=== PATIENT | female | born 1995 | race African-American/Black ===

== ENCOUNTER 2017-11-03 14:26 | Emergency (ER) | payer OTHER ==
--- NOTE | 2017-11-03 14:57 | EDPHY ---
H & P Time Seen by Provider: 11/03/17 14:40 HPI/ROS: Chief complaint. , vaginal bleeding HPI. 21-year-old female 8 weeks with vaginal spotting over the past few weeks. Last night she had heavier vaginal bleeding that seems to be now better. Last night she had some low abdominal cramping and low back pain. No urinary symptoms. 1 para 0. No care. No fever, chest discomfort, trouble breathing. ROS Constitutional. no fever/chills, no weakness Eyes. no problems with vision ENT. no sore throat, no nasal drainage Cardiovascular. no chest pain Respiratory. no shortness of breath, no cough Abdominal. Low abdominal cramping and vaginal bleeding . no problems urinating MS. no calf pain/swelling, no neck/back pain, no joint pain Skin. no rash Lymph. no swollen glands Neuro. no headache, no dizziness, no difficulty walking or with speech Past Medical/Surgical History: Healthy Social History: Single, daily smoker, no alcohol Smoking Status: Current every day smoker Physical Exam: General Appearance: Alert well-developed female mild distress vitals are stable Eyes: Pupils equal and round no pallor or injection. ENT, Mouth: Mucous membranes are moist. Respiratory: There are no retractions, lungs are clear to auscultation. Cardiovascular: Regular rate and rhythm. Gastrointestinal: Abdomen is soft and nontender, no masses, bowel sounds normal. Neurological: Awake and alert, sensory and motor exams grossly normal. Skin: Warm and dry, no rashes. Musculoskeletal: Neck is supple nontender. Extremities symmetrical, full range of motion. Psychiatric: Patient is oriented X 3, there is no agitation. Constitutional: Initial Vital Signs Temperature (C) 36.7 C 11/03/17 14:30 Heart Rate 95 11/03/17 14:30 Respiratory Rate 16 11/03/17 14:30 Blood Pressure 109/84 H 11/03/17 14:30 O2 Sat (%) 97 11/03/17 14:30 O2 Delivery Mode Room Air Allergies/Adverse Reactions: No Known Allergies Allergy (Unverified 11/03/17 14:30) Home Medications: Medication Instructions Recorded 11/03/17 Medical Decision Making - Diagnostics Imaging Results: Imaging Impressions Pelvic/Renal Ultrasound 11/03/17 15:06 Impression: 1. Single viable intrauterine gestation with EGA by LMP of 6 weeks 4 days and by ultrasound of 8 weeks 2 days is detected above. 2. Estimated date of delivery is 06/25/2018 by LMP and 06/13/2018 by ultrasound. 3. Small subchorionic hemorrhage along the left anterior aspect of the gestational sac. 4. Consider follow up anatomy scan. Findings discussed with Evens Crocker M.D. at 16:10 hour, 11/03/2017. Pelvic ultrasound reviewed by me and discussed with Dr. Ortega shows an 8 week 2 day fetus. heart rate 186. It is a single intrauterine . There is a subchorionic hemorrhage present Procedures: IV normal saline ED Course/Re-evaluation: Re-evaluation 5:00 p.m.. Patient is stable. The patient and I discussed imaging lab results. We discussed treatment plan including criteria for return importance of follow-up and further evaluation. She expresses understanding and agreement Differential Diagnosis: I considered threatened miscarriage, subchorionic hemorrhage, UTI - Data Points Laboratory Results: Laboratory Results 11/03/17 15:15 11/03/17 15:15 11/03/17 11/03/17 11/03/17 15:58 15:15 15:15 WBC 8.94 10^3/uL 10^3/uL (3.80-9.50) RBC 4.22 10^6/uL 10^6/uL (4.18-5.33) Hgb 12.3 g/dL L g/dL (12.6-16.3) Hct 36.6 % L % (38.0-47.0) MCV 86.7 fL fL (81.5-99.8) MCH 29.1 pg pg (27.9-34.1) MCHC 33.6 g/dL g/dL (32.4-36.7) RDW 13.1 % % (11.5-15.2) Plt Count 288 10^3/uL 10^3/uL (150-400) MPV 9.3 fL fL (8.7-11.7) Neut % (Auto) 74.7 % H % (39.3-74.2) Lymph % (Auto) 17.1 % % (15.0-45.0) [place] % (Auto) 6.3 % % (4.5-13.0) Eos % (Auto) 1.6 % % (0.6-7.6) Baso % (Auto) 0.1 % L % (0.3-1.7) Nucleat RBC Rel Count 0.0 % % (0.0-0.2) Absolute Neuts (auto) 6.68 10^3/uL H 10^3/uL (1.70-6.50) Absolute Lymphs (auto) 1.53 10^3/uL 10^3/uL (1.00-3.00) Absolute Monos (auto) 0.56 10^3/uL 10^3/uL (0.30-0.80) Absolute Eos (auto) 0.14 10^3/uL 10^3/uL (0.03-0.40) Absolute Basos (auto) 0.01 10^3/uL L 10^3/uL (0.02-0.10) Absolute Nucleated RBC 0.00 10^3/uL 10^3/uL (0-0.01) Immature Gran % 0.2 % % (0.0-1.1) Immature Gran # 0.02 10^3/uL 10^3/uL (0.00-0.10) Sodium 136 mEq/L mEq/L (135-145) Potassium 3.6 mEq/L mEq/L (3.3-5.0) Chloride 106 mEq/L mEq/L (97-110) Carbon Dioxide 23 mEq/l mEq/l (22-31) Anion Gap 7 mEq/L L mEq/L (8-16) BUN 7 mg/dL mg/dL (7-23) Creatinine 0.6 mg/dL mg/dL (0.6-1.0) Estimated GFR > 60 Glucose 81 mg/dL mg/dL (70-100) Calcium 9.3 mg/dL mg/dL (8.5-10.4) Beta HCG, Quant 262319.00 mIU/mL H mIU/mL (0.00-4.83) Urine Color YELLOW Urine Appearance MODERATELY TURBID Urine pH 7.0 (5.0-7.5) Ur Specific [place] 1.013 (1.002-1.030) Urine Protein NEGATIVE (NEGATIVE) Urine Ketones NEGATIVE (NEGATIVE) Urine Blood NEGATIVE (NEGATIVE) Urine Nitrate NEGATIVE (NEGATIVE) Urine Bilirubin NEGATIVE (NEGATIVE) Urine Urobilinogen NEGATIVE EU EU (0.2-1.0) Ur Leukocyte Esterase NEGATIVE (NEGATIVE) Urine RBC 5-10 /hpf H /hpf (0-3) Urine WBC 0-1 /hpf /hpf (0-3) Ur Epithelial Cells TRACE /lpf /lpf (NONE-1+) Amorphous Sediment PRESENT /hpf /hpf (NONE-1+) Urine Bacteria TRACE /hpf H /hpf (NONE SEEN) Urine Mucus TRACE /lpf /lpf (NONE-1+) Urine Glucose NEGATIVE (NEGATIVE) Patient ABO/Rh 11/03/17 15:15 WBC RBC Hgb Hct MCV MCH MCHC RDW Plt Count MPV Neut % (Auto) Lymph % (Auto) [place] % (Auto) Eos % (Auto) Baso % (Auto) Nucleat RBC Rel Count Absolute Neuts (auto) Absolute Lymphs (auto) Absolute Monos (auto) Absolute Eos (auto) Absolute Basos (auto) Absolute Nucleated RBC Immature Gran % Immature Gran # Sodium Potassium Chloride Carbon Dioxide Anion Gap BUN Creatinine Estimated GFR Glucose Calcium Beta HCG, Quant Urine Color Urine Appearance Urine pH Ur Specific [place] Urine Protein Urine Ketones Urine Blood Urine Nitrate Urine Bilirubin Urine Urobilinogen Ur Leukocyte Esterase Urine RBC Urine WBC Ur Epithelial Cells Amorphous Sediment Urine Bacteria Urine Mucus Urine Glucose Patient ABO/Rh A POSITIVE Medications Given: Discontinued Medications Sodium Chloride (Ns) 1,000 mls @ 0 mls/hr IV EDNOW ONE; Wide Open PRN Reason: Protocol Stop: 11/03/17 15:07 Last Admin: 11/03/17 15:17 Dose: 1,000 mls Departure - Departure Disposition: Home, Routine, Self-Care Clinical Impression: Threatened miscarriage Condition: Good Instructions: Threatened Miscarriage (ED) Additional Instructions: Please discontinue smoking as it is bad for your While having vaginal bleeding no intercourse, tampons, douching Easy activity next 3-4 days. May use Tylenol for discomfort but no aspirin or ibuprofen Return for worsening bleeding or pain. Re-evaluation in 2-3 days without fail Referrals: NONE *PRIMARY CARE P,. [Primary Care Provider] - As per Instructions Elodia Tubbs MD [Medical Doctor] - 2-3 days, call for appt.
[2017-11-03] MEDS ORDERED: NS 1,000 ML IV ONE (15:06)
[2017-11-03 15:26] LABS: PLATELET COUNT 288 10^3/uL (150-400)
[2017-11-03 16:50] VITALS: BP 113/66
== END 2017-11-03 17:24 | disposition home or self-care (01) ==
DX: O20.0 Threatened abortion (principal); E86.9 Volume depletion, unspecified; F17.200 Nicotine dependence, unspecified, uncomplicated; Z3A.08 8 weeks gestation of pregnancy